=== PATIENT | female | born 1965 | race Caucasian/White ===

== ENCOUNTER → 2022-12-17 07:39 | Outpatient (CLI) | payer BC, MEDICARE, SELFPAY ==
--- NOTE | ~2022-12-17 | US_ITS ---
EXAMINATION: US abdomen limited DATE: 12/17/2022 08:14 INDICATION: Right upper quadrant abdominal pain. TECHNIQUE: Multiple grayscale and Doppler ultrasound images of the abdomen were obtained. COMPARISON: CT abdomen and pelvis 10/10/2013 FINDINGS: Abdominal aorta is normal in caliber. Inferior vena cava is normal. The visualized portions of the head and body of the pancreas are normal. The liver is normal without focal lesion. No liver surface nodularity. There is normal flow in main portal vein. The gallbladder is normal in size. No g allstones or gallbladder wall thickening. There was no sonographic Quiroga sign. The common duct is no rmal and measures 3 mm. IMPRESSION: 1. Normal right upper quadrant ultrasound. Reviewed, dictated and finalized at location A.
== END ==
PROVIDERS: PCP Internal Medicine; Visit Provider Nurse Practitioner
DX: R10.11 Right upper quadrant pain (principal)
CPT/HCPCS: 76705

== ENCOUNTER 2023-10-11 01:04 | Day surgery (SDC) | payer BC, MEDICARE, SELFPAY ==
[2023-10-01 11:08] VITALS: BMI 29.8
--- NOTE | 2023-10-08 09:20 | SUR.PREOP ---
Patient called regarding upcoming procedure. Voicemail left regarding appointment times.
[2023-10-11 06:45] VITALS: BP 119/61; PULSE 69; RESP 16; TEMP 36.1; O2SAT 94
[2023-10-11] MEDS: LACTATED RINGERS 1,000 ML 150 ML IV CONT (06:59)
--- NOTE | 2023-10-11 07:29 | WPDANESEPPF ---
Anes - Initial Pre Proc Eval Procedure: Operation Date: 10/11/23 08:00 Proposed Procedures p Colonoscopy - Benigno Childress MD Date/Time: 10/11/23 07:29 Surgeon: Benigno Childress MD Pre Op Diagnosis: hx colon polyps Patient Data Age: 58 Gender: F Height: 1.7 m Weight: 89.9 kg Last Vital Signs Temp 97 F L 10/11/23 06:45 Pulse 69 10/11/23 06:45 Resp 16 10/11/23 06:45 BP 119/61 10/11/23 06:45 Pulse Ox 94 10/11/23 06:45 O2 Del Method Room Air 10/11/23 06:45 Allergies Allergy/AdvReac Type Severity Reaction Status Date / Time Iodinated Contrast Media Allergy Severe Wheezing Verified 10/11/23 06:43 iodine Allergy Severe Wheezing Verified 10/11/23 06:43 ioversol Allergy Severe Wheezing Verified 10/11/23 06:43 povidone-iodine Allergy Severe Wheezing Verified 10/11/23 06:43 [From Betadine] red dye Allergy Severe Wheezing Verified 10/11/23 06:43 shellfish derived Allergy Severe Wheezing Verified 10/11/23 06:43 Home Medications Medication Instructions Recorded Confirmed Type anastrozole 1 mg tablet (Arimidex) 1 mg PO DAILY 08/15/19 10/01/23 History duloxetine 60 mg capsule,delayed 60 mg PO DAILY 08/15/19 10/11/23 History release (Cymbalta) famotidine 20 mg tablet (Pepcid) 20 mg PO BID 08/15/19 10/01/23 History oxybutynin chloride 5 mg tablet 2.5 mg PO BID 05/07/20 10/11/23 History albuterol sulfate 90 mcg/actuation See Rx Instructions .Route 05/25/23 10/01/23 Rx aerosol inhaler .COMPLEX #18 grams lorazepam 0.5 mg tablet (Ativan) 0.5 mg PO TID PRN anxiety #60 tabs 06/24/23 10/11/23 Rx atorvastatin 20 mg tablet 20 mg PO DAILY #90 tabs 08/31/23 10/01/23 Rx Calcium + Vitamin D 1 cap PO DAILY 10/01/23 10/01/23 History cholecalciferol (vitamin D3) 25 25 mcg PO DAILY 10/01/23 10/01/23 History mcg (1,000 unit) chewable tablet (Vitamin D3) fluticasone furoate 27.5 1 spray intranasal DAILY 10/01/23 10/11/23 History mcg/actuation nasal spray,suspension (Flonase Sensimist) Patient hx anesthesia problems: none Family hx anesthesia problems: none Results Review: All pre-operative results and documents have been reviewed as part of the pre-operative evaluation. PMF Family History Family History Mother Family history of malignant neoplasm of breast in first degree relative Family history of malignant neoplasm of breast, Onset Age: 42 Social History Social History Smoking packs per day: 0.5 Smoking cigarettes per day: 10.0 Years smoked: 25 Smoking pack-years: 12.50 Smoking status: Current every day smoker Tobacco type: cigarettes Second hand tobacco smoke exposure: No Alcohol intake: current Substance use: never Substance use type: does not use Lack of Transportation: No Lack of Food: Never True Current Housing: I Have Housing Concerned About Future Housing: No Difficulty Paying Gas/Electric Bills: No Difficulty Paying for Meds: No Currently Unemployed: No Education: High School Diploma/GED Difficulty w/ Childcare or Family Care: No Living arrangements: with family Spiritual care concerns: No Anes - Eval Final PreProcedure Day of Procedure 10/11/23 07:29 Patient weight: obese Heart: regular rate and rhythm Lungs: clear to auscultation Airway: Mallampati scale class II Neurological: alert and oriented Last oral intake: >/= 8 hours ASA classification: III Emergent: no Anesthetic plan: proceed Anesthesia type and monitoring: general GIVS and standard monitoring Results Review: All pre-operative results and documents have been reviewed as part of the pre-operative evaluation. Informed Consent: The patient's anesthetic plan and its attendant risks and benefits were discussed with the patient/family/POA. Questions were solicited and answers provided to the satisfaction of
--- NOTE | 2023-10-11 07:52 | PM.HPGS ---
History of Present Illness History of Present Illness Consent: Risks, benefits, and alternatives have been discussed and questions answered. Patient agrees to proceed with procedure. Chief complaint: hx colon polyps Narrative: Emerita Chiang is a 58 year old female with polyps in 2017 Review of Systems Review of Systems: All systems reviewed & are unremarkable except as noted in HPI and below PMFSH Family History Family History Mother Family history of malignant neoplasm of breast in first degree relative Family history of malignant neoplasm of breast, Onset Age: 42 Social History Social History Smoking packs per day: 0.5 Smoking cigarettes per day: 10.0 Years smoked: 25 Smoking pack-years: 12.50 Smoking status: Current every day smoker Tobacco type: cigarettes Second hand tobacco smoke exposure: No Alcohol intake: current Substance use: never Substance use type: does not use Lack of Transportation: No Lack of Food: Never True Current Housing: I Have Housing Concerned About Future Housing: No Difficulty Paying Gas/Electric Bills: No Difficulty Paying for Meds: No Currently Unemployed: No Education: High School Diploma/GED Difficulty w/ Childcare or Family Care: No Living arrangements: with family Spiritual care concerns: No Meds Home Medications and Allergies Home Medications Medication Instructions Recorded Confirmed Type anastrozole 1 mg tablet (Arimidex) 1 mg PO DAILY 08/15/19 10/01/23 History duloxetine 60 mg capsule,delayed 60 mg PO DAILY 08/15/19 10/11/23 History release (Cymbalta) famotidine 20 mg tablet (Pepcid) 20 mg PO BID 08/15/19 10/01/23 History oxybutynin chloride 5 mg tablet 2.5 mg PO BID 05/07/20 10/11/23 History albuterol sulfate 90 mcg/actuation See Rx Instructions .Route 05/25/23 10/01/23 Rx aerosol inhaler .COMPLEX #18 grams lorazepam 0.5 mg tablet (Ativan) 0.5 mg PO TID PRN anxiety #60 tabs 06/24/23 10/11/23 Rx atorvastatin 20 mg tablet 20 mg PO DAILY #90 tabs 08/31/23 10/01/23 Rx Calcium + Vitamin D 1 cap PO DAILY 10/01/23 10/01/23 History cholecalciferol (vitamin D3) 25 25 mcg PO DAILY 10/01/23 10/01/23 History mcg (1,000 unit) chewable tablet (Vitamin D3) fluticasone furoate 27.5 1 spray intranasal DAILY 10/01/23 10/11/23 History mcg/actuation nasal spray,suspension (Flonase Sensimist) Allergies Allergy/AdvReac Type Severity Reaction Status Date / Time Iodinated Contrast Media Allergy Severe Wheezing Verified 10/11/23 06:43 iodine Allergy Severe Wheezing Verified 10/11/23 06:43 ioversol Allergy Severe Wheezing Verified 10/11/23 06:43 povidone-iodine Allergy Severe Wheezing Verified 10/11/23 06:43 [From Betadine] red dye Allergy Severe Wheezing Verified 10/11/23 06:43 shellfish derived Allergy Severe Wheezing Verified 10/11/23 06:43 Vital Signs Vital Signs - 24 hr 10/11/23 06:45 Temperature 97 F L Pulse Rate 69 Respiratory Rate 16 Blood Pressure 119/61 Pulse Oximetry 94 Oxygen Delivery Room Air Exam Const: General: comfortable and no acute distress HENMT: Face/Nose/Sinus: Normal nares present Eyes: General: appearance normal, both eyes and all related structures Neck: Neck: no JVD Resp: Auscultation: clear to auscultation bilaterally Cardio: Rate: regular rate Rhythm: regular rhythm GI: Inspection: non-distended GI Palp: Yes Soft to palpation Skin: General skin exam: normal color Neuro: General: gait normal Speech: normal speech Extrem: General: normal to inspection Psych: Mental Status: mental status grossly normal Assessment and Plan Assessment and plan (1) History of colon polyps: Code(s): Z86.010 - Personal history of colonic polyps Status: Acute Assessment and Plan: colonoscopy
[2023-10-11 08:20] VITALS: BP 94/42; PULSE 62; RESP 19; O2SAT 96
[2023-10-11 08:30] VITALS: BP 95/42; PULSE 63; RESP 17; O2SAT 97
[2023-10-11 08:40] VITALS: BP 104/54; PULSE 60; RESP 21; O2SAT 96
== END 2023-10-11 08:47 | disposition home or self-care (01) ==
PROVIDERS: PCP Nurse Practitioner; Visit Provider Internal Medicine Gastroenterology
PROC: 0DJD8ZZ Inspection of Lower Intestinal Tract, Via Natural or Artificial Opening Endoscopic (ICD-10-PCS; CPT 45378; principal; 2023-10-11 08:00)
DX: Z12.11 Encounter for screening for malignant neoplasm of colon (principal); K64.8 Other hemorrhoids; F17.210 Nicotine dependence, cigarettes, uncomplicated; E66.9 Obesity, unspecified; Z68.31 Body mass index [BMI] 31.0-31.9, adult; Z79.51 Long term (current) use of inhaled steroids; Z86.010 Personal history of colon polyps; Z80.3 Family history of malignant neoplasm of breast
CPT/HCPCS: 45378; J2001; J2704; J7120

== ENCOUNTER 2025-01-04 08:11 | Outpatient (CLI) | payer BC, MEDICARE, SELFPAY ==
--- NOTE | ~2025-01-04 | MR_ITS ---
MRI of the cervical spine Clinical History: Neck pain, radiculopathy Technique: Axial T2-weighted and gradient images, and sagittal T1-weighted, T2-weighted, and STIR tia ges were acquired. Findings: No fracture and 5. There is minimal grade 1 retrolisthesis of C5 over C6. No suspicious bon e marrow signal abnormality seen. At C2-C3, there is no significant disc bulge or herniation. No spinal canal stenosis, cord compressio n, or neural foraminal narrowing. At C3-C4, there is disc osteophyte complex without mary canal stenosis or cord compression. There is prominent left facet arthropathy. There is left neural foraminal narrowing. Possible mild right neur al foraminal narrowing. At C4-C5, there is bilateral facet arthropathy, right worse than left. Possible minimal right neural foraminal narrowing. Left neural foramen preserved. No canal stenosis or cord compression. At C5 and C6, there is moderate degenerative distended with mild disc osteophyte convex. No canal smiley nosis or cord compression. There is bilateral neural foraminal narrowing. At C6-C7, there is disc osteophyte complex with degenerative disc 9. No mary canal stenosis or cord compression. There is left neural foraminal narrowing. Right neural foramen probably preserved. No abnormal signal seen in the spinal cord. Paravertebral soft tissues are unremarkable. Impression: Moderate degenerative spondylosis overall, as detailed above. Reviewed, dictated and finalized at [facility]. Impression: Moderate degenerative spondylosis overall, as detailed above.
== END 2025-01-04 08:12 | disposition home or self-care (01) ==
LOC: GOSHIMG 08:11
PROVIDERS: PCP Chiropractor; Visit Provider Chiropractor
DX: M47.22 Other spondylosis with radiculopathy, cervical region (principal)
CPT/HCPCS: 72141